=== PATIENT | female | born 1980 | race Hispanic/Latino ===

== ENCOUNTER 2024-02-02 14:35 | Outpatient (CLI) | payer OTHER | END 2024-02-02 14:36 | disposition home or self-care (01) | LOC: BICMRI 14:35 | PROVIDERS: ATTEND Orthopaedic Surgery | DX: M17.11 Unilateral primary osteoarthritis, right knee (principal); M94.261 Chondromalacia, right knee; R93.7 Abnormal findings on diagnostic imaging of other parts of musculoskeletal system ==

== ENCOUNTER 2024-05-24 10:29 | Outpatient (CLI) | payer OTHER | END 2024-05-24 10:30 | disposition home or self-care (01) | LOC: BICRAD 10:29 | PROVIDERS: ATTEND Family Medicine | DX: M54.50 Low back pain, unspecified (principal); M47.816 Spondylosis without myelopathy or radiculopathy, lumbar region | CPT/HCPCS: 72100 ==

== ENCOUNTER 2024-07-03 11:49 | Outpatient (CLI) | payer OTHER | END 2024-07-03 11:50 | disposition home or self-care (01) | LOC: BICMAMMO 11:49 | PROVIDERS: ATTEND Family Medicine | DX: Z12.31 Encounter for screening mammogram for malignant neoplasm of breast (principal); N63.11 Unspecified lump in the right breast, upper outer quadrant | CPT/HCPCS: 77063; 77067 ==

== ENCOUNTER 2024-09-18 14:41 | Outpatient (CLI) | payer OTHER | END 2024-09-18 14:42 | disposition home or self-care (01) | LOC: CT 14:41 | PROVIDERS: ATTEND Family Medicine | DX: J34.89 Other specified disorders of nose and nasal sinuses (principal); J34.2 Deviated nasal septum ==